=== PATIENT | female | born 1960 | race Caucasian/White ===

== ENCOUNTER 2023-02-25 12:14 | Emergency (ER) | payer OTHER, SELFPAY ==
--- NOTE | ~2023-02-25 | CT_ITS ---
EXAMINATION: CT brain wo con INDICATION: Dizziness COMPARISON: None TECHNIQUE: Standard unenhanced head CT. The dose-length product (DLP) was 605.33 mGy-cm. The mA was a djusted according to patient size. Iterative reconstruction technique was employed. FINDINGS: There is no intracranial hemorrhage, acute infarction, or abnormal mass lesion. The ventric les are normal. There is no abnormal mass effect or midline shift. The raman-white matter differentiat ion is normal. The basal cisterns are patent. The orbits are normal. The paranasal sinuses, mastoids and calvarium are normal. IMPRESSION: 1. No acute intracranial abnormality. Reviewed, dictated and finalized at location B.
[2023-02-25 12:17] VITALS: BP 168/82; PULSE 86; RESP 15; TEMP 36.7; O2SAT 99
--- NOTE | 2023-02-25 12:17 | ECG_ITS ---
Measurements Intervals Ider Rate: 83 P: 69 DC: 156 QRS: 5 QRSD: 94 T: 52 QT: 383 QTc: 452 Interpretive Statements SINUS RHYTHM NORMAL ELECTROCARDIOGRAM NO PREVIOUS ECG AVAILABLE FOR COMPARISON Electronically Signed On 02-25-2023 17:16:55 CDT by Derik Childers M.D.
[2023-02-25 12:38] LABS: Basophils Absolute Auto 0.1 K/mm3 (0.0-0.1); Basophils Percent Auto 0.6 % (0.2-1.2); Eosinophils Absolute Auto 0.1 K/mm3 (0-0.3); Eosinophils Percent Auto 1.3 % (0-4.4); Hematocrit 45.9 % (37.0-47.0); Immature Granulocyte Absolute 0.04 K/mm3 (0.00-0.031); Immature Granulocyte Percent A 0.4 % (0-0.5); Lymphocytes Absolute Auto 2.02 K/mm3 (0.9-3.2); Lymphocytes Percent Auto 20.4 % (18.3-44.2); Mean Corpuscular HGB Conc 32.7 g/dl (32-36); Mean Corpuscular Hemoglobin 30.1 pg (26-34); Mean Corpuscular Volume 92.2 fl (80-100); Mean Platelet Volume 9.6 fl (7.4-10.4); Monocytes Absolute Auto 0.7 K/mm3 (0.1-0.6); Monocytes Percent Auto 7.4 % (2.6-8.5); Neutrophils Absolute Auto 6.9 K/mm3 (1.3-6.7); Neutrophils Percent Auto 69.9 % (45.5-73.1); Platelet Count Result 272 k/mm3 (150-375); Red Blood Count 4.98 M/mm3 (4.2-5.4); White Blood Count 9.9 K/mm3 (4.5-10.0)
[2023-02-25 12:50] LABS: Alanine Aminotransferase 25 U/L (6-35); Albumin Level 4.5 g/dL (3.5-5.1); Alkaline Phosphatase 54 U/L (38-126); Anion Gap 6 mmol/L (8-16); Aspartate Amino Transferase 30 U/L (14-36); Bilirubin,Total 0.5 mg/dL (0.2-1.3); Blood Urea Nitrogen 16 mg/dL (7-17); Calcium 9.5 mg/dL (8.4-10.2); Carbon Dioxide 28 mmol/L (22-30); Chloride 103 mmol/L (98-107); Estimated CRCL calculation 87 ml/min; Estimated Glomerular Filt Rate > 60; Glucose 126 mg/dL (65-110); Potassium 3.3 mmol/L (3.4-5.0); Sodium 137 mmol/L (137-145)
--- NOTE | 2023-02-25 13:35 | ED.DIZZY ---
HPI - Dizziness General Chief Complaint: Dizziness Stated Complaint: dizziness/blacking out Time Seen by Provider: 02/25/23 13:34 Source: patient Limitations: no limitations History of Present Illness HPI Narrative: 62 years old white female presented to the ED with dizziness, everything is wobbly with head movement or body movement, associated with nausea. Patient denies any headache, chest pain, shortness of breath, back pain or recent trauma. History of diabetes, patient forgot to eat her breakfast today, does not smoke or drink or uses drugs, history of RA, osteoporosis. She denies focal neurodeficit. Symptoms worse when she stands up or do any activity, better if she remaining this still for a while. She denies having similar symptoms. Related Data Allergies Allergy/AdvReac Type Severity Reaction Status Date / Time acetaminophen Allergy Dizziness Verified 02/25/23 14:25 [From Darvocet-N] propoxyphene Allergy Dizziness Verified 02/25/23 14:25 [From Darvocet-N] Review of Systems Review of Systems: All systems reviewed & are unremarkable except as noted in HPI and below Exam Narrative: General appearance: Well-developed, well-nourished Skin: Normal color Head: Normocephalic, nontraumatic Eyes: Clear conjunctiva ENT: Oropharynx normal, ears normal, nose normal Neck: Supple, nontender Chest and respiratory: Airway patent, no respiratory distress, no accessory muscle use Heart: Regular rate/rhythm Abdomen: Soft, nontender, no organomegaly, quiet bowel sounds Vascular: Normal peripheral pulses, normal capillary refill. Musculoskeletal: Normal range of motion, nontender back Neurologic: Alert and oriented ?3, [employer] is normal as tested, no gross motor deficit Course Vital Signs Vital signs: Vital Signs Temperature 36.7 C 02/25/23 12:17 Pulse Rate 86 02/25/23 12:17 Respiratory Rate 15 02/25/23 12:17 Blood Pressure 168/82 H 02/25/23 12:17 Pulse Oximetry 99 02/25/23 12:17 Oxygen Delivery Room Air 02/25/23 12:17 Temperature 36.7 C 02/25/23 12:17 Pulse Rate 91 02/25/23 14:26 Respiratory Rate 15 02/25/23 12:17 Blood Pressure 120/90 02/25/23 14:26 Pulse Oximetry 99 02/25/23 12:17 Oxygen Delivery Room Air 02/25/23 12:17 MDM - Dizziness MDM Narrative Medical decision making narrative: Patient presents with benign positional vertigo symptoms that started 1 week ago, worse with head or body movement, better if she remaining still associated with nausea. Patient reported having similar symptoms years ago required physical therapy. Physical exam showed vertigo symptoms with sudden movement of the bed or turning head right and left. Differential diagnosis intracranial abnormality, benign positional vertigo, unspecified vertigo, posterior circulation CVA. Work-up today showed potassium of 3.3, normal CT scan of the head. Patient received 5 mg of Valium IV, Zofran 4 mg orally, Antivert 25 mg orally with remarkable improvement. Patient was able to get out of bed and walk around in the emergency room without any symptoms. Patient was able to eat and drink prior to discharge. the pt was discharged to home.the pt,s condition upon discharge was fair,education was provided to the pt in reference to the final impression,discharge study results,treatment,prognosis and need for follow up . Differential Diagnosis Differential diagnosis: Likely benign paroxysmal positional vertigo, orthostatic hypotension, vertebral basilar insufficiency and acute vestibular neuronitis Lab Data Attestation: I reviewed the patient's lab results. 02/25/23 12:32 02/25/23 12:32 Labs: Lab Results
[2023-02-25 14:25] VITALS: BP 152/93; PULSE 86
[2023-02-25 14:26] VITALS: BP 120/90; BP 151/84; PULSE 88; PULSE 91
[2023-02-25] MEDS: Please add drug allergy info to patient profile. XX (14:26)
[2023-02-25] MEDS: ONDANSETRON HCL ODT 4 MG TABLET PO (14:38)
[2023-02-25] MEDS: diazePAM INJ (*CRX) 10 MG/2 ML SYRINGE 5 MG IV PUSH (14:38)
[2023-02-25] MEDS: MECLIZINE HCL 25 MG TABLET PO (14:38)
== END 2023-02-25 16:11 | disposition home or self-care (01) ==
PROVIDERS: Emergency Provider Emergency Medicine
DX: H81.10 Benign paroxysmal vertigo, unspecified ear (principal)
CPT/HCPCS: 36415; 70450; 80053; 85025; 93005; 96374; 99284; A9270; J3360